=== PATIENT | male | born 1970 | race Caucasian/White ===

== ENCOUNTER → 2017-03-02 | Outpatient (CLI) | payer OTHER ==
[~2017-03-02] MED LIST: LINEZOLID600 MG PO; LOPRESSOR DPS50 MG PO; MUCINEX600 MG PO; NORVASC DPS10 MG PO
== END | disposition home or self-care (01) ==
LOC: RAD.S 07:36
DX: J18.9 Pneumonia, unspecified organism (principal); R91.8 Other nonspecific abnormal finding of lung field; I10 Essential (primary) hypertension